=== PATIENT | female | born 1970 | race Caucasian/White ===

== ENCOUNTER 2023-05-19 05:38 | Emergency (ER) | payer BC ==
[~2023-05-19] VITALS: Ht 165.1 cm; Wt 64.0 kg
[2023-05-19 06:51] LABS: ALANINE AMINOTRANSFERASE 18 IU/L (10-49)
[2023-05-21 06:07] LABS: HEPATITIS B CORE ANTIBODY Negative (Negative); HEPATITIS B SURFACE AB QUAL Reactive (.); HEPATITIS C AB Non Reactive (Non Reactive)
== END 2023-05-19 07:00 | disposition home or self-care (01) ==
LOC: ER 05:56
DX: S61.439A Puncture wound without foreign body of unspecified hand, initial encounter (principal); X58.XXXA Exposure to other specified factors, initial encounter; Y93.89 Activity, other specified; Y92.89 Other specified places as the place of occurrence of the external cause; Y99.8 Other external cause status
CPT/HCPCS: 36415; 84460; 86704; 86706; 86803; 99283

== ENCOUNTER 2023-10-17 22:27 | Emergency (ER) | payer BC, OTHER ==
[~2023-10-17] VITALS: Ht 172.7 cm; Wt 68.0 kg
[2023-10-17 22:32] VITALS: TEMP 98.1; O2SAT 100
[2023-10-17 23:30] VITALS: BP 137/92; PULSE 78; RESP 16
[2023-10-17] MEDS: KETOROLAC 30MG/ML VIAL IM ONE (23:30)
[2023-10-17] MEDS ORDERED: T3 PO (23:43)
[2023-10-17] MEDS ORDERED: CYCL10TA21 MT (23:43)
[2023-10-17] MEDS ORDERED: IBUP-2029 MT (23:43)
== END 2023-10-18 02:08 | disposition home or self-care (01) ==
LOC: ER 22:27
DX: M54.50 Low back pain, unspecified (principal)
CPT/HCPCS: 99283; 96372; J1885